=== PATIENT | male | born 1990 | race American Indian/Alaskan Native ===

== ENCOUNTER 2021-09-23 13:53 | Emergency (ER) | payer SELFPAY ==
[2021-09-23 14:28] VITALS: BP 147/77
== END 2021-09-23 22:01 | disposition left against medical advice (07) ==
LOC: ED 13:53
DX: Z00.00 Encounter for general adult medical examination without abnormal findings (principal); Z53.21 Procedure and treatment not carried out due to patient leaving prior to being seen by health care provider